=== PATIENT | female | born 1935 | race Caucasian/White ===

== ENCOUNTER 2016-10-27 07:22 | Inpatient (IN) | payer OTHER ==
[~2016-10-27 07:22] MED LIST: BISACODYL 10 MG SUPP PR PRN; CALCIUM CHLORIDE 1 GM/10 ML INJ ONE; CYCLOBENZAPRINE 10 MG TAB PO PRN; DIAZEPAM 5 MG TAB PO PRN; DIPHENOXYLATE/ATROPINE LOMOTIL 1 TAB PO PRN; LACTULOSE 20 GM/30 ML UDCUP PO PRN; MAGNESIUM HYDROXIDE 30 ML UDCUP PO PRN; METOCLOPRAMIDE 10 MG/2 ML VIAL IVP PRN; ONDANSETRON 4 MG/2 ML VIAL IVP PRN; ONDANSETRON DISINTEGRATING 4 MG TAB PO PRN; PHARMACY PAIN CONSULT 1 EA MISC PRN; POLYETHYLENE GLYCOL 3350 17 GM PKT PO PRN; PROMETHAZINE HCL 25 MG SUPPR PR PRN; PROMETHAZINE HCL 25 MG/ML INJ IVP PRN; SENNOSIDES/DOCUSATE SODIUM TAB PO PRN; TEMAZEPAM 15 MG CAP PO PRN; THROMBIN (RECOMBINANT) 5,000 UNIT VIAL TP ONE; ceFAZolin 1 GM/5 ML SYR ONE; diphenhydrAMINE 25 MG CAP PO PRN
[2016-10-27] MEDS ORDERED: LR 1,000 ML IV SCH (07:30)
[2016-10-27] MEDS ORDERED: ACETAMINOPHEN 325 MG TAB PO ONE (07:30)
[2016-10-27] MEDS ORDERED: CHLORHEXIDINE GLUC HIBICLENS 118 ML BTL TP ONE (07:30)
[2016-10-27] MEDS ORDERED: CEFAZOLIN 2 GM/DEXTR 100 ML IV ONE (07:30)
[2016-10-27] MEDS ORDERED: ROPI/epiNEPH/KETOROLAC/morphINE JOINT COCKTAIL IU ONE (07:30)
[2016-10-27] MEDS ORDERED: FAMOTIDINE 20 MG TAB PO ONE (07:30)
[2016-10-27] MEDS ORDERED: LIDOCAINE 1% 5 ML SDV ID PRN (08:12)
[2016-10-27] MEDS ORDERED: LR 1,000 ML IV ONE (08:12)
[2016-10-27] MEDS ORDERED: NON-FORMULARY NEW DRUG (Losartan/Hydrochlorothiazide [Hyzaar 100-12.5 Tablet] 1 EACH) PO SCH (09:00)
[2016-10-27] MEDS ORDERED: MIDAZOLAM 2 MG/2 ML VIAL ONE ×2 (09:17→11:43)
[2016-10-27] MEDS ORDERED: PROPOFOL/EMULSION 500 MG/50 ML BOTTLE IV ONE (09:47)
[2016-10-27] MEDS ORDERED: fentaNYL 100 MCG/2 ML INJ ONE ×3 (10:07→12:33)
[2016-10-27] MEDS ORDERED: HYDROmorphONE/DILAUDID 2 MG/ML SYR ONE (10:18)
[2016-10-27] MEDS ORDERED: ONDANSETRON 4 MG/2 ML VIAL ONE (10:36)
[2016-10-27] MEDS ORDERED: DEXAMETHASONE 4 MG/ML VIAL ONE (10:36)
[2016-10-27] MEDS ORDERED: ROPIVACAINE HCL 150 MG/30 ML INJ ONE (10:37)
[2016-10-27] MEDS ORDERED: epHEDrine SULFATE 10 MG/ML SYR ONE (10:43)
[2016-10-27] MEDS ORDERED: LIDOCAINE 2% 100 MG/5 ML SYR IVP ONE (11:29)
--- NOTE | 2016-10-27 12:16 | DX ---
Portable Left Knee, AP and Lateral Views, at 11:55 a.m. Clinical History: 81-year-old female in the PACU after a left knee arthroplasty. Comparison Study: Left knee, dated August 27, 2016. Findings: In the interim, the patient has undergone a tricomponent knee arthroplasty, with anatomic positioning of the distal femoral, proximal tibial, and the posterior patellar components. There is s ome normally-expected postoperative air in the soft tissues. Skin elena are seen anteriorly. A pneu matic cuff is seen over the calf. Impression: Status post left knee arthroplasty, with anatomic alignment.
[2016-10-27] MEDS: LOSARTAN POTASSIUM 50 MG TAB PO SCH (13:42)
[2016-10-27] MEDS: SENNOSIDES/DOCUSATE SODIUM TAB PO SCH ×2 (13:42→20:51)
[2016-10-27] MEDS: MULTIVITAMINS 1 EACH TAB PO SCH (13:42)
[2016-10-27] MEDS: HYDROCHLOROTHIAZIDE 12.5 MG CAP PO SCH (13:42)
[2016-10-27] MEDS: VENLAFAXINE XR 75 MG CAP PO SCH (13:43)
[2016-10-27] MEDS: busPIRone 15 MG TAB PO SCH (13:43)
[2016-10-27] MEDS ORDERED: ceFAZolin 2 GM/DEXTROSE 100 ML IV SCH (14:00)
[2016-10-27] MEDS: ACETAMINOPHEN 325 MG TAB PO SCH ×3 (14:13→23:25)
[2016-10-27] MEDS: ceFAZolin 2 GM in D5W 100 ML IV SCH ×2 (14:24→20:52)
--- NOTE | 2016-10-27 15:43 | PDIAF ---
- Diagnosis Diagnosis: right knee djd Code Status: Full Code - Medication Management Discharge Medications: Medications to Continue on Transfer Herbals/Supplements -Info Only 1 ea PO DAILY 09/23/16 [Last Taken 1 Week Ago] Levothyroxine [Synthroid 75 mcg (*)] 75 mcg PO DAILY06 09/23/16 [Last Taken ] Losartan/Hydrochlorothiazide [Hyzaar 100-12.5 Tablet] 1 each PO DAILY 09/23/16 [ Last Taken 4 Days Ago] Multivitamins [Multivitamin (*)] 1 each PO DAILY 09/23/16 [Last Taken 1 Week Ago ] Sennosides/Docusate Sodium [Senna-Docusate Sodium Tablet] 1 each PO DAILY PRN [Last Taken 2 Weeks Ago] Simvastatin [Zocor] 40 mg PO DAILY@18 09/23/16 [Last Taken 4 Days Ago] Venlafaxine Xr [Effexor Xr 75MG (*)] 225 mg PO DAILY 09/23/16 [Last Taken ] busPIRone [Buspar (*)] 30 mg PO DAILY 09/23/16 [Last Taken 1 Week Ago] celeCOXIB [Celebrex (*)] 200 mg PO DAILY 09/23/16 [Last Taken 1 Week Ago] traZODone [traZODONE 50MG (*)] 50 mg PO HS 09/23/16 [Last Taken 1 Day Ago] Discharge Medications: Refer to the Discharge Home Medication list for PRN reason. - Orders Diet Recommendation: no restrictions on diet Diet Texture: Regular Texture Diet Activity/Weight Bearing Restrictions: wbat. rom as kassidy. daily dressing changes. may shower without bandage, no soaking or immersion. f/u at two weeks [facility], call for appointment. seek attn for increasing pain, cp , sob. aspirin 325 mg po daily\. rakan mao x 2 weeks - Follow Up Care Current Providers and Referrals: DARSHAN GARZA [Primary Care Provider] -
[2016-10-27] MEDS: ATORVASTATIN CALCIUM 20 MG TAB PO SCH (17:53)
[2016-10-27] MEDS ORDERED: NON-FORMULARY NEW DRUG (Simvastatin [Zocor] 40 MG) PO SCH (18:00)
[2016-10-27] MEDS: oxyCODONE IR 5 MG TAB PO PRN ×2 (18:42→23:30)
[2016-10-27] MEDS: FAMOTIDINE 20 MG TAB PO SCH (20:51)
[2016-10-27] MEDS: traZODone 50 MG TAB PO SCH (20:51)
[2016-10-27] MEDS: ASPIRIN 325 MG TAB PO SCH (20:51)
[2016-10-28 06:54] LABS: HEMATOCRIT 25.4 % (38.0-47.0)
[2016-10-28] MEDS: ACETAMINOPHEN 325 MG TAB PO SCH ×3 (07:20→17:36)
[2016-10-28] MEDS: ceFAZolin 2 GM in D5W 100 ML IV SCH (07:20)
[2016-10-28] MEDS: LEVOTHYROXINE 75 MCG TAB PO SCH (07:21)
--- NOTE | 2016-10-28 07:28 | SOAPPROG ---
SOAP Progress Note Assessment/Plan: Assessment: s/p tka Plan: begin mobilization wbat rom as kassidy dressing change tomorrow may need snf given falling and slow movement will [id number] with pt today dvt precautions 10/28/16 07:26 Subjective: mild pain no cp or sob Objective: Vital Signs Temp Pulse Resp BP Pulse Ox 36.9 C 96 18 105/83 H 94 10/27/16 23:31 10/27/16 23:31 10/27/16 23:31 10/27/16 23:31 10/27/16 23:31 Laboratory Results 10/28/16 05:12 10/27/16 10/28/16 10/29/16 05:59 05:59 05:59 Intake Total 2200 Output Total 450 Balance 1750 dressing intact pf,df,ehl intact neg homans bilaterally xrays stable alignement no fx or lucency ICD10 Worksheet Patient Problems: Problems Problem Status Onset 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
[2016-10-28 07:35] VITALS: RESP 16
[2016-10-28] MEDS: VENLAFAXINE XR 75 MG CAP PO SCH (07:59)
[2016-10-28] MEDS: busPIRone 15 MG TAB PO SCH (08:00)
[2016-10-28] MEDS: LOSARTAN POTASSIUM 50 MG TAB PO SCH (08:00)
[2016-10-28] MEDS: FAMOTIDINE 20 MG TAB PO SCH ×2 (08:00→20:28)
[2016-10-28] MEDS: HYDROCHLOROTHIAZIDE 12.5 MG CAP PO SCH (08:00)
[2016-10-28] MEDS: MULTIVITAMINS 1 EACH TAB PO SCH (08:00)
[2016-10-28] MEDS: SENNOSIDES/DOCUSATE SODIUM TAB PO SCH ×2 (08:01→20:28)
[2016-10-28] MEDS: ASPIRIN 325 MG TAB PO SCH (08:01)
[2016-10-28] MEDS ORDERED: FLU VACC TS 2016-17(65YR+)/PF 0.5 ML SYR (FLUZONE HIGH DOSE) IM ONE ×2 (08:15→11:46)
[2016-10-28] MEDS: oxyCODONE IR 5 MG TAB PO PRN ×4 (11:49→18:31)
[2016-10-28] MEDS: ATORVASTATIN CALCIUM 20 MG TAB PO SCH (17:36)
[2016-10-28] MEDS: traZODone 50 MG TAB PO SCH (20:28)
[2016-10-29] MEDS: oxyCODONE IR 5 MG TAB PO PRN ×5 (00:12→13:06)
[2016-10-29] MEDS: ACETAMINOPHEN 325 MG TAB PO SCH ×3 (00:12→13:02)
[2016-10-29 05:27] LABS: HEMATOCRIT 26.8 % (38.0-47.0); HEMOGLOBIN 9.2 g/dL (12.6-16.3)
[2016-10-29] MEDS: LEVOTHYROXINE 75 MCG TAB PO SCH (05:52)
--- NOTE | 2016-10-29 07:01 | PDIAF ---
- Diagnosis Diagnosis: right knee djd Code Status: Full Code - Medication Management Discharge Medications: Medications to Continue on Transfer Herbals/Supplements -Info Only 1 ea PO DAILY 09/23/16 [Last Taken 1 Week Ago] Levothyroxine [Synthroid 75 mcg (*)] 75 mcg PO DAILY06 09/23/16 [Last Taken ] Losartan/Hydrochlorothiazide [Hyzaar 100-12.5 Tablet] 1 each PO DAILY 09/23/16 [ Last Taken 4 Days Ago] Multivitamins [Multivitamin (*)] 1 each PO DAILY 09/23/16 [Last Taken 1 Week Ago ] Sennosides/Docusate Sodium [Senna-Docusate Sodium Tablet] 1 each PO DAILY PRN [Last Taken 2 Weeks Ago] Simvastatin [Zocor] 40 mg PO DAILY@18 09/23/16 [Last Taken 4 Days Ago] Venlafaxine Xr [Effexor Xr 75MG (*)] 225 mg PO DAILY 09/23/16 [Last Taken ] busPIRone [Buspar (*)] 30 mg PO DAILY 09/23/16 [Last Taken 1 Week Ago] celeCOXIB [Celebrex (*)] 200 mg PO DAILY 09/23/16 [Last Taken 1 Week Ago] traZODone [traZODONE 50MG (*)] 50 mg PO HS 09/23/16 [Last Taken 1 Day Ago] Aspirin [Aspirin 325 mg (*)] 325 mg PO DAILY #0 tab 10/29/16 [Last Taken Unknown ] oxyCODONE IR [Oxycodone Ir (*)] 5 - 10 mg PO Q3HRS PRN #70 tab 10/29/16 [Last Taken Unknown] Discharge Medications: Refer to the Discharge Home Medication list for PRN reason. - Orders Services needed: Physical Therapy, Occupational Therapy Diet Recommendation: no restrictions on diet Diet Texture: Regular Texture Diet Activity/Weight Bearing Restrictions: wbat. rom as kassidy. daily dressing changes. may shower without bandage, no soaking or immersion. f/u at two weeks [facility], call for appointment. seek attn for increasing pain, cp , sob. aspirin 325 mg po daily\. rakan mao x 2 weeks - Follow Up Care Current Providers and Referrals: DARSHAN GARZA [Primary Care Provider] -
--- NOTE | 2016-10-29 07:02 | SOAPPROG ---
SOAP Progress Note Assessment/Plan: Assessment: s/p tka Plan: begin mobilization wbat rom as kassidy dressing change tomorrow may need snf given falling and slow movement will [id number] with pt today dvt precautions d/c to snf when available 10/28/16 07:26 10/29/16 07:01 Subjective: pain 5/10 no cp or sob tolerating po no acute complaints Objective: Vital Signs Temp Pulse Resp BP Pulse Ox 37.1 C 85 16 122/62 H 92 10/28/16 23:34 10/28/16 23:34 10/28/16 23:34 10/28/16 23:34 10/28/16 23:34 Laboratory Results 10/29/16 04:42 10/28/16 10/29/16 10/30/16 05:59 05:59 05:59 Intake Total 2200 1000 Output Total 450 600 Balance 1750 400 dressing intact intact pf,df,ehl toes warm and pink neg homans bilaterally ICD10 Worksheet Patient Problems: Problems Problem Status Onset 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
[2016-10-29 08:30] VITALS: PULSE 69; TEMP 97.6; O2SAT 90
[2016-10-29] MEDS: SENNOSIDES/DOCUSATE SODIUM TAB PO SCH (08:47)
[2016-10-29] MEDS: MULTIVITAMINS 1 EACH TAB PO SCH (08:47)
[2016-10-29] MEDS: FAMOTIDINE 20 MG TAB PO SCH (08:47)
[2016-10-29] MEDS: ASPIRIN 325 MG TAB PO SCH (08:48)
[2016-10-29] MEDS: VENLAFAXINE XR 75 MG CAP PO SCH (08:49)
[2016-10-29] MEDS: busPIRone 15 MG TAB PO SCH (08:55)
[2016-10-29] MEDS: HYDROCHLOROTHIAZIDE 12.5 MG CAP PO SCH ×2 (08:57→13:18)
[2016-10-29] MEDS: LOSARTAN POTASSIUM 50 MG TAB PO SCH ×2 (08:58→13:18)
[2016-10-29 13:20] VITALS: BP 129/68
== END 2016-10-29 14:06 | DRG 470 ==
LOC: F3N 07:22
PROVIDERS: ADMIT Orthopaedic Surgery; ATTEND Orthopaedic Surgery
PROC: 0SRC0J9 Replacement of Right Knee Joint with Synthetic Substitute, Cemented, Open Approach (ICD-10-PCS; principal; 2016-10-27 09:15)
DX: M17.12 Unilateral primary osteoarthritis, left knee (principal); Z23 Encounter for immunization
CPT/HCPCS: 97110-GP; 97116-GP; 97161-GP; 97165-GO; 97530-GP; C1713; G0008; G8978-GP-CL; G8979-GP-CK; G8987-GO-CK; G8988-GO-CI; J0171; J0690; J1100; J1170; J1885; J2001; J2250; J2405; J2704; J2795; J3010

== ENCOUNTER → 2016-12-09 | Outpatient (CLI) | payer OTHER | LOC: BMCIMAGING 13:59 | PROVIDERS: ATTEND Physician Assistant | DX: Z09 Encounter for follow-up examination after completed treatment for conditions other than malignant neoplasm (principal); Z96.652 Presence of left artificial knee joint ==